=== PATIENT | male | born 1965 | race Caucasian/White ===

== ENCOUNTER 2020-03-05 11:12 | Outpatient (CLI) | payer OTHER, SELFPAY ==
[2020-03-06 14:56] LABS: SARS-CoV-2 RNA PCR Negative
== END 2020-03-05 11:13 | disposition home or self-care (01) ==
PROVIDERS: PCP Internal Medicine; Visit Provider Internal Medicine
DX: Z20.828 Contact with and (suspected) exposure to other viral communicable diseases (principal)
CPT/HCPCS: 87635; C9803; U0003

== ENCOUNTER 2021-01-20 09:51 | Outpatient (CLI) | payer OTHER, SELFPAY ==
--- NOTE | ~2021-01-20 | XR_ITS ---
XR chest 2V DATE: 01/20/2021 10:19 INDICATION: Left lateral chest pain for 4 days. Smoker. TECHNIQUE: PA and lateral views COMPARISON: None FINDINGS: Normal heart size. No hilar or mediastinal enlargement. No pulmonary infiltrate or consolid ation, pleural effusion or pulmonary vascular congestion or pneumothorax. IMPRESSION: No active cardiopulmonary disease Reviewed, dictated and finalized at location B.
[2021-01-20 10:05] LABS: Basophils Absolute Auto 0.03 K/mm3 (0.00-0.10); Basophils Percent Auto 0.5 % (0.0-1.0); Eosinophils Absolute Auto 0.16 K/mm3 (0.02-0.50); Eosinophils Percent Auto 2.8 % (1.0-6.0); Immature Granulocyte Absolute 0.02 K/mm3 (0.00-0.00); Immature Granulocyte Percent A 0.3 % (0.0-0.0); Lymphocytes Absolute Auto 1.57 K/mm3 (1.10-4.50); Lymphocytes Percent Auto 27.1 % (18.0-42.0); Mean Corpuscular Hemoglobin 31.8 pg (27.0-31.0); Mean Corpuscular Volume 93.5 fL (78.0-102.0); Mean Platelet Volume 8.5 fl (8.7-11.0); Monocytes Absolute Auto 0.61 K/mm3 (0.10-0.90); Monocytes Percent Auto 10.5 % (2.0-11.0); Neutrophils Absolute Auto 3.4 K/mm3 (1.7-7.2); Neutrophils Percent Auto 58.8 % (50.0-70.0); Platelet Count Result 244 K/mm3 (150-420); Red Blood Count 5.35 M/mm3 (4.70-6.10); Red Cell Distribution Width 13.1 % (11.6-14.4); White Blood Count 5.8 K/mm3 (4.8-10.8)
[2021-01-20 10:08] LABS: Add Urine Microscopic? NO; Appearance Urine Clear (Clear); Bilirubin Urine Negative (Negative); Blood Urine Negative (Negative); Color Urine Light Yellow (Yellow); Glucose Urine UA Negative (Negative); Ketones Urine Negative (Negative); Leukocyte Esterase Ur Negative (Negative); Nitrate Urine Negative (Negative); Protein Urine Negative (Negative); Specific Grav Ur 1.015 (1.010-1.020); Urobilinogen Urine 0.2 mg/dL (0.2-1.0)
[2021-01-20 10:20] LABS: D Dimer 0.71 mg/L (0.19-0.50)
[2021-01-20 10:24] LABS: Alanine Aminotransferase 42 U/L (16-63); Albumin Level 3.8 g/dL (3.4-5.0); Alkaline Phosphatase 76 U/L (46-116); Anion Gap 9 mmol/L (8-16); Aspartate Amino Transferase 17 U/L (15-37); Bilirubin,Total 0.3 mg/dL (0.00-1.00); Blood Urea Nitrogen 11 mg/dL (7-18); CRP < 0.5 mg/dL (0.0-0.9); Calcium 8.9 mg/dL (8.5-10.1); Carbon Dioxide 27 mmol/L (21-32); Chloride 103 mmol/L (98-108); Estimated Glomerular Filt Rate > 60; Glucose 95 mg/dL (70-99); Osmolality Calculated 287 mOsm/kg (285-295); Potassium 4.1 mmol/L (3.5-5.1); Sodium 139 mmol/L (136-145); Total Protein 7.4 g/dL (6.4-8.2)
[2021-01-23 10:12] LABS: Creatine Kinase 60 U/L (39-308); Troponin I 4.6 ng/L (0.00-60.4)
== END 2021-01-20 09:52 | disposition home or self-care (01) ==
LOC: CHSLAB 09:54
PROVIDERS: PCP Internal Medicine; Visit Provider Internal Medicine
DX: R07.89 Other chest pain (principal); M25.50 Pain in unspecified joint
CPT/HCPCS: 36415; 71046; 80053; 81003; 82550; 82553; 84484; 85025; 85380; 86140

== ENCOUNTER → 2021-01-20 12:11 | Outpatient (CLI) | payer OTHER, SELFPAY ==
--- NOTE | ~2021-01-20 | CT_ITS ---
EXAMINATION: CTA chest PE protocol DATE: 01/20/2021 12:35 INDICATION: Left chest pain TECHNIQUE: Computed tomography (CT) pulmonary angiogram of the chest was performed with 100 mL Omnipa que-350 intravenous contrast. Additional 3D reconstructions utilizing coronal maximum intensity proje ction (MIP) were performed. The dose-length product was 761.58 mGy-cm. COMPARISON: None FINDINGS: Good but suboptimal contrast opacification of the pulmonary arteries. There is mild streak artifact f rom dense contrast in the superior vena cava and right atrium. Minimal scattered respiratory motion a rtifact which does not significantly limit evaluation. No pulmonary embolism. Mild emphysema. Minimal dependent atelectasis in the bilateral lower lobes. No pneumonia, pulmonary edema, pleural effusion or pneumothorax. 5 mm triangular likely intrafissural lymph node along with accessory fissure in the basilar left lower lobe. Heart size is normal. Atherosclerotic coronary artery calcific location. No pericardial effusion. Thoracic aorta is normal in caliber with no dissection. Approximately 2 cm hypo enhancing mass in the right thyroid lobe. No pathologically enlarged thoracic lymphadenopathy. There is diffuse mild wall thickening the distal esophagus which could be seen with esophagitis or reflux. Visualized upper abdomen is unremarkable. Chronic mild anterior wedging of a few upper thoracic verte bral bodies. IMPRESSION: 1. No pulmonary embolism or other acute cardiopulmonary disease. 2. Mild emphysema. 3. Mild wall thickening along the distal esophagus which could be due to esophagitis or reflux. Reviewed, dictated and finalized at location A. IMPRESSION: 1. No pulmonary embolism or other acute cardiopulmonary disease. 2. Mild emphysema. 3. Mild wall thickening along the distal esophagus which could be due to esopha gitis or reflux.
[2021-01-20 12:26] LABS: Estimated Glomerular Filt Rate > 60
== END ==
PROVIDERS: PCP Internal Medicine; Visit Provider Internal Medicine
DX: R10.12 Left upper quadrant pain (principal); I26.99 Other pulmonary embolism without acute cor pulmonale; J43.9 Emphysema, unspecified
CPT/HCPCS: 71275; Q9967

== ENCOUNTER → 2021-01-22 13:27 | Outpatient (CLI) | payer OTHER, SELFPAY ==
--- NOTE | ~2021-01-22 | US_ITS ---
EXAMINATION: US thyroid EXAM DATE: 01/22/2021 13:43 INDICATION: Nontoxic single thyroid nodule . TECHNIQUE: Multiple grayscale and Doppler images of the thyroid were obtained (by a technologist who performed the scan) and subsequently reviewed. Individual nodules and recommendations may be reporte d in accordance with TI-RADS system as designated by the 2017 ACR White Paper TI-RADS committee. The re is no prior study for comparison. FINDINGS: The right thyroid lobe measures 6.1 x 2.5 x 2.5 cm, the left measuring 5.1 x 2.3 x 1.6 cm. These dime nsions are moderately enlarged. There is a nodule in the lower pole of the right thyroid lobe deep aspect measuring 2.2 x 1.8 x 1.8 c m, solid (2 points), hypoechoic (2 points), wider than tall, smooth well defined margin, without echo genic foci, category TR4 for this nodule. IMPRESSION: 1. Right thyroid lobe nodule large enough to recommend ultrasound-guided FNA. 2. Goiter. Reviewed, dictated and finalized at location A.
== END ==
PROVIDERS: PCP Internal Medicine; Visit Provider Internal Medicine
DX: E04.9 Nontoxic goiter, unspecified (principal)
CPT/HCPCS: 76536

== ENCOUNTER 2021-02-24 00:50 | Day surgery (SDC) | payer OTHER, SELFPAY ==
[2021-02-05 13:46] VITALS: BMI 32.1
[2021-02-24 08:36] VITALS: BP 143/91; PULSE 63; RESP 16; TEMP 35.8; O2SAT 97; BMI 32.8
--- NOTE | 2021-02-24 08:43 | P.PNAN_ITS ---
Anes - Initial Pre Proc Eval Procedure: Operation Date: 02/24/21 10:00 Proposed Procedures p Esophagogastroduodenoscopy - Jordan Orona MD Date/Time: 02/24/21 08:43 Surgeon: Jordan Orona MD Pre Op Diagnosis: left upper quadrant pain Patient Data Age: 55 Gender: M Height: 1.8 m Weight: 106.8 kg Last Vital Signs Temp 35.8 C L 02/24/21 08:36 Pulse 63 02/24/21 08:36 Resp 16 02/24/21 08:36 BP 143/91 H 02/24/21 08:36 Pulse Ox 97 02/24/21 08:36 Allergies Allergy/AdvReac Type Severity Reaction Status Date / Time No Known Allergies Allergy Verified 02/24/21 08:34 Home Medications Medication Instructions Recorded Confirmed Type atorvastatin 20 mg tablet 20 mg PO DAILY 02/20/20 02/24/21 History lisinopril 20 1 tablet PO DAILY 02/20/20 02/24/21 History mg-hydrochlorothiazide 12.5 mg tablet pantoprazole 40 mg PO BID 02/05/21 02/24/21 History Patient hx anesthesia problems: none Family hx anesthesia problems: none Results Review: All pre-operative results and documents have been reviewed as part of the pre-operative evaluation. [facility] Past Medical History Medical History (Updated 02/24/21 @ 08:44 by Jeffrey Martinez MD) Emphysema of lung High cholesterol History of kidney stones Hypertension Surgical History Surgical History History of colonoscopy Family History Family History Father , age 62 Acute myocardial infarction Hypertension Mother Hypertension Social History Social History Smoking packs per day: 1 Smoking cigarettes per day: 20.0 Years smoked: 35 Smoking pack-years: 35.00 Smoking status: Former smoker Tobacco type: cigarettes Alcohol intake: current Alcohol use details: social Substance use type: does not use Living arrangements: with family Additional occupation/education comments: [employer] Anes - Eval Final PreProcedure Day of Procedure 02/24/21 08:43 Patient weight: obese Heart: regular rate and rhythm Lungs: clear to auscultation and normal air movement Airway: Mallampati scale class II Neurological: alert and oriented Last oral intake: >/= 8 hours ASA classification: III Emergent: no Anesthetic plan: proceed Anesthesia type and monitoring: general GIVS Results Review: All pre-operative results and documents have been reviewed as part of the pre-operative evaluation. Informed Consent: The patient's anesthetic plan and its attendant risks and benefits were discussed with the patient/family/POA. Questions were solicited and answers provided to the satisfaction of the patient/family/POA.
[2021-02-24] MEDS: LACTATED RINGERS 1,000 ML 150 ML IV CONT (08:48)
--- NOTE | 2021-02-24 09:22 | PM.HPGS ---
History of Present Illness History of Present Illness Consent: Risks, benefits, and alternatives have been discussed and questions answered. Patient agrees to proceed with procedure. Chief complaint: left upper quadrant pain Narrative: Ozzy To is a 55 year old male with luq pain that prompted CT scan that showed possible distal esophagitis but denies gerd symptoms, he was started on pantoprazole anyway. Review of Systems Constitutional: Constitutional: Denies headache(s) and Denies weakness Eyes: Eyes: Denies blurry vision ENT: Reports Normal hearing present, Denies headache(s) and Denies neck pain Cardiovascular: Cardiovascular: Denies chest pain and Denies dyspnea Respiratory: Respiratory: Denies dyspnea Gastrointestinal: Gastrointestinal: Reports no additional gastrointestinal complaints Genitourinary: Genitourinary: Denies dysuria Musculoskeletal: Musculoskeletal: Denies neck pain Integumentary/Breasts: Skin/Breast: Denies dry skin Neurologic: Reports Normal hearing present, Denies headache(s) and Denies weakness Psychiatric: Psychiatric: Denies anxiety Endocrine: Endocrine: Denies change in body appearance Hematologic/Lymphatic: Hematologic/Lymphatic: Denies easy bleeding Allergic/Immunologic: Allergic/Immunologic: Denies urticaria PMFSH Past Medical History Medical History (Updated 02/24/21 @ 09:22 by Jordan Orona MD) Abnormal CT scan, esophagus Emphysema of lung High cholesterol History of kidney stones Hypertension Surgical History Surgical History History of colonoscopy Family History Family History Father , age 62 Acute myocardial infarction Hypertension Mother Hypertension Social History Social History Smoking packs per day: 1 Smoking cigarettes per day: 20.0 Years smoked: 35 Smoking pack-years: 35.00 Smoking status: Former smoker Tobacco type: cigarettes Alcohol intake: current Alcohol use details: social Substance use type: does not use Living arrangements: with family Additional occupation/education comments: [employer] Meds Home Medications and Allergies Home Medications Medication Instructions Recorded Confirmed Type atorvastatin 20 mg tablet 20 mg PO DAILY 02/20/20 02/24/21 History lisinopril 20 1 tablet PO DAILY 02/20/20 02/24/21 History mg-hydrochlorothiazide 12.5 mg tablet pantoprazole 40 mg PO BID 02/05/21 02/24/21 History Allergies Allergy/AdvReac Type Severity Reaction Status Date / Time No Known Allergies Allergy Verified 02/24/21 08:34 Vital Signs Vital Signs - 24 hr 02/24/21 08:36 Temperature 96.5 F L Pulse Rate 63 Respiratory Rate 16 Blood Pressure 143/91 H Pulse Oximetry 97 Exam Const: General: comfortable and no acute distress HENMT: General nose exam: Normal nares present Eyes: General: appearance normal, both eyes and all related structures Neck: Neck: no JVD Resp: Auscultation: clear to auscultation bilaterally Cardio: Rate: regular rate Rhythm: regular rhythm GI: Inspection: non-distended GI Palp: Yes Soft to palpation Skin: General skin exam: normal color Neuro: General: gait normal Speech: normal speech Extrem: General: normal to inspection Psych: Mental Status: mental status grossly normal Assessment and Plan Assessment and plan (1) Abnormal CT scan, esophagus: Code(s): R93.3 - Abnormal findings on diagnostic imaging of other parts of digestive tract Status: Acute Assessment and Plan: possible esophagitis, will assess with egd
[2021-02-24] MEDS: BENZOCAINE (*SP) 60 ML SPRAY CAN (HURRICAINE) 1 SPRAY MUCOUS MEM (09:28)
[2021-02-24 09:36] VITALS: BP 136/89; PULSE 68; RESP 21; O2SAT 95
[2021-02-24 09:46] VITALS: BP 139/90; PULSE 64; RESP 18; O2SAT 95
[2021-02-24 09:56] VITALS: BP 118/77; PULSE 64; RESP 18; O2SAT 95
== END 2021-02-24 09:56 | disposition home or self-care (01) ==
PROVIDERS: PCP Internal Medicine; Visit Provider Internal Medicine Gastroenterology
PROC: 0DJ08ZZ Inspection of Upper Intestinal Tract, Via Natural or Artificial Opening Endoscopic (ICD-10-PCS; CPT 43235; principal; 2021-02-24 10:00)
DX: R10.12 Left upper quadrant pain (principal); J43.9 Emphysema, unspecified; E78.00 Pure hypercholesterolemia, unspecified; I10 Essential (primary) hypertension; Z87.891 Personal history of nicotine dependence; E66.9 Obesity, unspecified; Z68.32 Body mass index [BMI] 32.0-32.9, adult
CPT/HCPCS: 43235; J2704; J7120

== ENCOUNTER 2021-08-12 16:39 | Outpatient (CLI) | payer OTHER, SELFPAY ==
[2021-08-12 17:00] LABS: Appearance Urine Clear (Clear); Basophils Absolute Auto 0.05 K/mm3 (0.00-0.10); Basophils Percent Auto 0.8 % (0.0-1.0); Bilirubin Urine Negative (Negative); Color Urine Yellow (Yellow); Eosinophils Absolute Auto 0.26 K/mm3 (0.02-0.50); Eosinophils Percent Auto 4.3 % (1.0-6.0); Glucose Urine UA Negative (Negative); Hematocrit 48.7 % (40.0-54.0); Immature Granulocyte Absolute 0.02 K/mm3 (0.00-0.00); Immature Granulocyte Percent A 0.3 % (0.0-0.0); Ketones Urine Negative (Negative); Leukocyte Esterase Ur Negative (Negative); Lymphocytes Absolute Auto 1.83 K/mm3 (1.10-4.50); Lymphocytes Percent Auto 30.4 % (18.0-42.0); Mean Corpuscular HGB Conc 34.9 g/dL (32.0-36.0); Mean Corpuscular Volume 91.7 fL (78.0-102.0); Mean Platelet Volume 8.8 fl (8.7-11.0); Monocytes Absolute Auto 0.63 K/mm3 (0.10-0.90); Monocytes Percent Auto 10.5 % (2.0-11.0); Neutrophils Absolute Auto 3.2 K/mm3 (1.7-7.2); Neutrophils Percent Auto 53.7 % (50.0-70.0); Nitrate Urine Negative (Negative); Platelet Count Result 220 K/mm3 (150-420); Protein Urine Negative (Negative); Red Blood Count 5.31 M/mm3 (4.70-6.10); Specific Grav Ur 1.025 (1.010-1.020); Urobilinogen Urine 0.2 mg/dL (0.2-1.0); pH Urine 6.5 (5.0-8.0)
[2021-08-12 17:04] LABS: Add Urine Microscopic? YES; Bacteria Urine Trace /hpf; Blood Urine Trace-Intact (Negative); Mucus Urine Moderate /lpf; Squamous Epithelial Cell Urine Rare /hpf (Few); WBC Urine None seen /hpf (0-3)
[2021-08-12 17:12] LABS: Alanine Aminotransferase 50 U/L (16-63); Albumin Level 3.8 g/dL (3.4-5.0); Alkaline Phosphatase 68 U/L (46-116); Amylase 84 U/L (25-115); Anion Gap 7 mmol/L (8-16); Aspartate Amino Transferase 18 U/L (15-37); Bilirubin,Total 0.3 mg/dL (0.00-1.00); Blood Urea Nitrogen 17 mg/dL (7-18); Calcium 8.8 mg/dL (8.5-10.1); Carbon Dioxide 28 mmol/L (21-32); Chloride 101 mmol/L (98-108); Estimated Glomerular Filt Rate > 60; Glucose 98 mg/dL (70-99); Lipase 77 U/L (73-393); Osmolality Calculated 283 mOsm/kg (285-295); Potassium 4.1 mmol/L (3.5-5.1); Sodium 136 mmol/L (136-145); Total Protein 7.5 g/dL (6.4-8.2)
== END 2021-08-12 16:40 | disposition home or self-care (01) ==
LOC: CHSLAB 16:40
PROVIDERS: PCP Internal Medicine; Visit Provider Internal Medicine
DX: R10.9 Unspecified abdominal pain (principal)
CPT/HCPCS: 36415; 80053; 81001; 82150; 83690; 85025

== ENCOUNTER → 2021-08-17 13:10 | Outpatient (CLI) | payer OTHER, SELFPAY ==
--- NOTE | ~2021-08-17 | CT_ITS ---
EXAMINATION: CT abdomen pelvis wo con DATE: 08/17/2021 13:23 INDICATION: Hematuria, abdominal pain TECHNIQUE: Computed tomography (CT) of the abdomen and pelvis was performed without intravenous contr ast. The dose-length product (DLP) was 981.80 mGy-cm. Automated exposure control and iterative recons truction technique were employed. COMPARISON: None FINDINGS: The lung bases are clear. The heart size is normal. The liver is diffusely low in attenuati on when compared with the spleen, consistent with hepatic steatosis. The spleen, pancreas, gallbladde r, and adrenal glands are normal. The kidneys are unremarkable. No stones are identified in the kidne ys, ureters, or bladder. There is no hydronephrosis or hydroureter. There is calcified atherosclerosi s of the aorta and many of the other arteries. No pathologically enlarged abdominal or pelvic lymph n odes are identified. There is no free intraperitoneal gas or evidence of bowel obstruction. Colonic d iverticulosis is present without evidence of diverticulitis. The appendix is normal. There is moderat e lumbar spondylosis. IMPRESSION: 1. No CT correlate for the patient's symptoms. Reviewed, dictated and finalized at location F.
== END ==
PROVIDERS: PCP Internal Medicine; Visit Provider Internal Medicine
DX: R31.9 Hematuria, unspecified (principal); R10.9 Unspecified abdominal pain
CPT/HCPCS: 74176

== ENCOUNTER → 2021-10-05 14:20 | Outpatient (CLI) | payer OTHER, SELFPAY ==
--- NOTE | ~2021-10-05 | US_ITS ---
EXAMINATION: US thyroid DATE: 10/05/2021 14:36 INDICATION: Thyroid nodule. TECHNIQUE: Multiple ultrasound images of the thyroid were obtained. COMPARISON: Ultrasound 01/22/2021 FINDINGS: The right thyroid lobe measures 5.8 x 2.7 x 2.4 cm. The left thyroid lobe measures 4.8 x 2.1 x 1.8 c m. In the left thyroid lobe, there is a 4 mm nodule, likely not clinically significant. In the right thyroid lobe, there is a 2.4 cm solid, hypoechoic, wider than tall nodule with ill-defined margin wi thout echogenic foci (TI-RADS TR4). IMPRESSION: 1. Stable right thyroid nodule. Ultrasound-guided fine-needle aspiration is recommended. Reviewed, dictated and finalized at location B. IMPRESSION: 1. Stable right thyroid nodule. Ultrasound-guided fine-needle aspiration is rec ommended.
== END ==
PROVIDERS: PCP Internal Medicine; Visit Provider Internal Medicine Endocrinology, Diabetes & Metabolism
DX: E04.1 Nontoxic single thyroid nodule (principal)
CPT/HCPCS: 76536

== ENCOUNTER → 2022-12-09 08:12 | Outpatient (CLI) | payer OTHER, SELFPAY ==
--- NOTE | ~2022-12-09 | CT_ITS ---
EXAMINATION: CT lung screening DATE: 12/09/2022 08:26 INDICATION: Z87.891 - Personal history of nicotine dependence TECHNIQUE: Computed tomography (CT) of the chest was performed without intravenous contrast. Addition al 3D reconstructions utilizing coronal maximum intensity projection (MIP) were performed. Automated exposure control and iterative reconstruction technique were employed. The dose-length product was 32 1.77 mGy-cm. COMPARISON: CT dated 01/20/2021 FINDINGS: There are scattered unchanged pulmonary nodules, the largest measuring 8 mm in the superior segment o f the left lower lobe and 5 mm in the right upper and right lower lobes. No new or enlarging pulmonar y nodules identified. No pneumonia, pulmonary edema or other pulmonary infiltrates. No pleural effusi on. Calcified right hilar lymph nodes consistent with old granulomatous disease. Heart size is normal . Atherosclerotic coronary artery calcification. No pericardial effusion. Thoracic aorta is normal in caliber. No pathologically enlarged thoracic lymphadenopathy. Diffuse hepatic steatosis a focal spar ing along the gallbladder fossa. Minimal chronic anterior wedging of T5 and T6 and Schmorl's node pita ng the superior endplate of T8. IMPRESSION: 1. Lung-RADS category 2: Benign appearance or behavior. Continue annual screening with noncontrast lo w-dose chest CT in 12 months. Reviewed, dictated and finalized at location A. IMPRESSION: 1. Lung-RADS category 2: Benign appearance or behavior. Continue annual screeni ng with noncontrast low-dose chest CT in 12 months.
== END ==
PROVIDERS: PCP Nurse Practitioner Family; Visit Provider Nurse Practitioner Family
DX: Z12.2 Encounter for screening for malignant neoplasm of respiratory organs (principal); Z87.891 Personal history of nicotine dependence
CPT/HCPCS: 71271

== ENCOUNTER → 2022-12-28 15:00 | Outpatient (CLI) | payer OTHER, SELFPAY ==
--- NOTE | ~2022-12-28 | XR_ITS ---
EXAM: XR lumbar spine 2-3V DATE: 12/28/2022 16:20 HISTORY: Dorsalgia . COMPARISON: None available. FINDINGS: 5 nonrib-bearing lumbar-type vertebral bodies. Pedicles intact. 3 mm anterolisthesis at L4 -5, otherwise normal vertebral body alignment. Vertebral body heights preserved. Aortic calcification without evident aneurysm. Mild disc space narrowing at L4-5. Moderate lower lumbar facet hypertrophy and sclerosis. No fracture or dislocation. IMPRESSION: Grade 1 anterolisthesis at L4-5, with mild degenerative disc disease at the same level. Helen washburn lumbar facet arthropathy. Reviewed, dictated and finalized at location K. IMPRESSION: Grade 1 anterolisthesis at L4-5, with mild degenerative disc diseas e at the same level. Lower lumbar facet arthropathy.
--- NOTE | ~2022-12-28 | XR_ITS ---
EXAM: XR hip BI 2V w AP pelvis DATE: 12/28/2022 16:20 HISTORY: Bilateral hip pain . COMPARISON: None available. FINDINGS: Normal mineralization. No fracture or dislocation. No lytic or blastic lesion. Mild degene rative change in the bilateral hips. No erosion or periosteal change. Phleboliths. Minimal scattered vascular calcifications. IMPRESSION: Mild bilateral hip osteoarthritis. Reviewed, dictated and finalized at location K.
== END ==
PROVIDERS: PCP Emergency Medicine; Visit Provider Emergency Medicine
DX: M16.0 Bilateral primary osteoarthritis of hip (principal); M51.36 Other intervertebral disc degeneration, lumbar region
CPT/HCPCS: 72100; 73521

== ENCOUNTER 2023-12-21 14:53 | Outpatient (CLI) | payer OTHER, SELFPAY ==
--- NOTE | ~2023-12-21 | CT_ITS ---
EXAMINATION:CT lung screening DATE: 12/21/2023 15:14 INDICATION: Personal history of nicotine dependence. Smoker who quit 3 years ago with 36 pack year hi story. TECHNIQUE: Computed tomography (CT) of the chest was performed without intravenous contrast. Automate d exposure control and iterative reconstruction technique were employed. The dose-length product (DLP ) was 296.21 mGy-cm. COMPARISON: Chest CT 12/09/2022, 01/20/21 FINDINGS: There is mild emphysema. There is a stable 8 mm nodule at left major fissure. There is a st able 5 mm nodule in right lower lobe. There is a stable 3 mm nodule in right lower lobe. No pleural e ffusion. The heart size is normal. There are coronary artery calcifications. No pericardial effusion. Calcified right hilar lymph nodes are consistent with old granulomatous disease. There is diffuse he patic steatosis. There is a 3.1 cm mass measuring soft tissue attenuation in right kidney that previo usly measured 2.6 cm. There is mild chronic anterior wedging of multiple thoracic vertebral bodies. T here is mild thoracic spondylosis. IMPRESSION: 1. Lung-RADS category 2S: Benign appearance or behavior. Continue annual screening with noncontrast l ow-dose chest CT in 12 months. 2. 3.1 cm right kidney mass suspicious for renal cell carcinoma. Abdomen CT without and with contrast is recommended. Reviewed, dictated and finalized at location A. IMPRESSION: 1. Lung-RADS category 2S: Benign appearance or behavior. Continue annual screen ing with noncontrast low-dose chest CT in 12 months. 2. 3.1 cm right kidney mass suspicious for renal cell carcinoma. Abdomen CT wit hout and with contrast is recommended.
== END 2023-12-21 14:54 | disposition home or self-care (01) ==
LOC: ANHIMG 14:59
PROVIDERS: PCP Emergency Medicine; Visit Provider Nurse Practitioner Family
DX: Z12.2 Encounter for screening for malignant neoplasm of respiratory organs (principal); N28.89 Other specified disorders of kidney and ureter; Z87.891 Personal history of nicotine dependence
CPT/HCPCS: 71271

== ENCOUNTER 2023-12-30 13:45 | Outpatient (CLI) | payer OTHER, SELFPAY ==
--- NOTE | ~2023-12-30 | CT_ITS ---
EXAMINATION: CT abdomen pelvis wo/w con DATE: 12/30/2023 14:09 INDICATION: Right kidney mass. Other specified disorders of kidney and ureter. TECHNIQUE: Computed tomography (CT) of the abdomen and pelvis was performed without and with 100 mL O mnipaque 350 intravenous contrast. Automated exposure control and iterative reconstruction technique were employed. The dose-length product was 1749.25 mGy-cm. COMPARISON: Chest CT 12/21/2023 FINDINGS: The visualized portions of lung bases are clear without pneumonia or pleural effusion. The heart size is normal. There are coronary artery calcifications. No pericardial effusion. There is dif fuse hepatic steatosis. The liver, gallbladder, spleen, pancreas, and adrenal glands are normal. Ther e is a 3.0 cm mass in right kidney measures 33 HU on precontrast images and 53 HU on postcontrast ilir ges. There are cysts in left kidney measuring up to 10 mm. The prostate is moderately enlarged. There is diverticulosis of the colon without evidence of diverticulitis. There are no dilated loops of bow el. The appendix is normal. There are no pathologically enlarged lymph nodes. There is no free intrap eritoneal fluid. There is mild thoracic and lumbar spondylosis. IMPRESSION: 1. 3.0 cm enhancing right kidney mass, consistent with renal cell carcinoma. Reviewed, dictated and finalized at location A.
[2023-12-30 14:00] LABS: Estimated Glomerular Filt Rate > 60
== END 2023-12-30 13:46 | disposition home or self-care (01) ==
LOC: MICIMG 13:45
PROVIDERS: PCP Emergency Medicine; Visit Provider Emergency Medicine
DX: N28.89 Other specified disorders of kidney and ureter (principal)
CPT/HCPCS: 74178; Q9967

== ENCOUNTER 2025-02-04 09:26 | Outpatient (CLI) | payer OTHER, SELFPAY ==
--- NOTE | ~2025-02-04 | XR_ITS ---
XR cervical spine 4-5V Indication: Neck pain Comparison: None Findings: Grade 1 anterolisthesis of C3 on C4 C4 on C5, no fracture, no subluxation flexion and extension. Moderate loss of disc height C5-6 and C6-7. Soft tissues unremarkable Impression: No acute abnormality. Reviewed, dictated and finalized at location P. Impression: No acute abnormality.
--- NOTE | ~2025-02-04 | US_ITS ---
EXAMINATION: US thyroid DATE: 02/04/2025 10:10 INDICATION: Thyroid nodule. TECHNIQUE: Multiple ultrasound images of the thyroid were obtained. COMPARISON: Ultrasound 10/05/2021, 01/22/2021 FINDINGS: The right thyroid lobe measures 6.2 x 3.0 x 2.3 cm. The left thyroid lobe measures 5.3 x 2.6 x 1.9 cm. In the left thyroid lobe, there is a 5 mm solid, hypoechoic, wider than tall nodule with smooth margin without echogenic foci (TI-RADS TR4). In the right thyroid lobe, there is a 3.4 cm solid, hypoechoic, wider than tall nodule with ill-defined margin without echogenic foci (TR4). IMPRESSION: 1. Right thyroid nodule with interval enlargement. Ultrasound-guided fine-needle aspiration is recommended. Reviewed, dictated and finalized at location E. IMPRESSION: 1. Right thyroid nodule with interval enlargement. Ultrasound-guided fine-needl e aspiration is recommended.
== END 2025-02-04 09:27 | disposition home or self-care (01) ==
PROVIDERS: PCP Internal Medicine; Visit Provider Internal Medicine
DX: M54.2 Cervicalgia (principal); E04.1 Nontoxic single thyroid nodule
CPT/HCPCS: 72050; 76536